=== PATIENT | male | born 1970 | race Caucasian/White ===

== ENCOUNTER 2024-08-04 07:00 | Day surgery (SDC) | payer BC, OTHER ==
[2024-07-29 10:24] LABS: BASOPHILS % (AUTO) 0.3 % (0-1); EOSINOPHILS # (AUTO) 0.1 X10'3 (0-0.9); EOSINOPHILS % (AUTO) 1.7 % (0-6); LYMPHOCYTES # (AUTO) 1.9 X10'3 (1.1-4.8); LYMPHOCYTES % (AUTO) 33.4 % (21-51); MEAN CORPUSCULAR HEMOGLOBIN 31.1 PG (27.0-31.0); MEAN CORPUSCULAR HGB CONC 34.1 g/dL (33.0-36.5); MEAN CORPUSCULAR VOLUME 91.3 FL (78-98); MEAN PLATELET VOLUME 8.2 FL (7.4-10.4); MONOCYTES # (AUTO) 0.6 X10'3 (0-0.9); MONOCYTES % (AUTO) 10.7 % (2-12); NEUTROPHILS # (AUTO) 3.1 X10'3 (1.8-7.7); NEUTROPHILS % (AUTO) 53.9 % (42-75); PRE OP HEMATOCRIT 49.1 % (42.0-52.0); PRE OP HEMOGLOBIN 16.7 g/dL (14.0-17.9); PRE OP PLATELET COUNT 248 X10'3 (140-440); PRE OP WHITE BLOOD COUNT 5.8 10'3 (4.8-10.8); RED BLOOD COUNT 5.38 X10'6 (4.70-6.10)
[2024-07-29 10:41] LABS: ALBUMIN 4.3 G/DL (3.4-5.0); ALBUMIN/GLOBULIN RATIO 1.1 (1.1-1.5); ALKALINE PHOSPHATASE 108 IU/L (46-116); CHLORIDE 104 MMOL/L (99-107); CREATININE 1.03 MG/DL (0.60-1.10); PRE OP ALT 40 U/L (30-65); PRE OP ANION GAP 4 (8-16); PRE OP AST 25 U/L (10-37); PRE OP BILIRUB, TOTAL 0.9 MG/DL (0.0-1.0); PRE OP POTASSIUM 4.7 MMOL/L (3.4-5.1); PRE OP SODIUM 141 MMOL/L (135-145); TOTAL CARBON DIOXIDE 33.1 MMOL/L (24-32); TOTAL PROTEIN 8.1 G/DL (6.4-8.2); eGFR 76 ML/MIN
[2024-07-29 10:49] LABS: BLOOD UREA NITROGEN 14 MG/DL (7-18); BUN/CREATININE RATIO 13.6 (10.0-20.0); PRE OP GLUCOSE 90 MG/DL (70-104)
[~2024-08-04] VITALS: Ht 177.8 cm; Wt 93.0 kg
[2024-08-04] VITALS (12 sets, daily range): BP systolic 130–145; BP diastolic 79–91; PULSE 71–102; RESP 10–19; TEMP 97.5; O2SAT 92–99
[2024-08-04] MEDS: ceFAZolin 2gm in dextrose, iso 50 ML IV ONE (05:30)
[~2024-08-04 07:00] MED LIST: CHOL10006 PO; LOVA20TA2 PO
[2024-08-04] MEDS ORDERED: LIDOcaine 1% 30ml preserv. free vial ONE (07:17)
[2024-08-04] MEDS ORDERED: BUPIVAcaine 2.5mg/ml inj 50ml vial (contains preservative) ONE (07:17)
[2024-08-04] MEDS ORDERED: morphine 2 MG/ML inj. syringe IV PRN (07:25)
[2024-08-04] MEDS ORDERED: morphine 4 MG/ML inj SYRINge IV PRN (07:25)
[2024-08-04] MEDS ORDERED: hydrALAZINE 20mg/ml inj. IV PRN (07:25)
[2024-08-04] MEDS ORDERED: proCHLORperazine 10 MG/2 ml inj IV PRN (07:25)
[2024-08-04] MEDS ORDERED: ringers solution, lacted 1,000 ML IV SCH (07:25)
[2024-08-04] MEDS ORDERED: ondansetron/PF 4mg/2ml inj IV PRN (07:25)
[2024-08-04] MEDS ORDERED: labetalol 20mg/4ml (5mg/ml) syringe IV PRN (07:25)
[2024-08-04] MEDS ORDERED: meperidine/PF 25mg/ml syringe IV PRN ×3 (07:25)
[2024-08-04] MEDS: famotidine 20mg tablet PO ONE (07:28)
[2024-08-04] MEDS: ringers solution, lacted 1,000 ML IV SCH (07:29)
[2024-08-04] MEDS ORDERED: sevoflurane 250ml liquid IH ONE (08:33)
[2024-08-04] MEDS ORDERED: fentaNYL /PF 50mcg/ml 5ml ampule ONE (08:36)
[2024-08-04] MEDS ORDERED: midazolam 1 mg/ML 2ml injection ONE (08:36)
[2024-08-04] MEDS ORDERED: dexamethasone sod phosphate 4mg/ml inj. ONE (08:43)
[2024-08-04] MEDS ORDERED: LIDOcaine 2% (20mg/ml) 5ml vial ONE (08:43)
[2024-08-04] MEDS ORDERED: ondansetron/PF 4mg/2ml inj ONE (08:43)
[2024-08-04] MEDS ORDERED: propofol inj 20 ML IV ONE (08:43)
[2024-08-04] MEDS ORDERED: rocuronium 10mg/ml inj IV ONE (08:43)
[2024-08-04] MEDS: BUPIVAcaine 2.5mg/ml inj 50ml vial (contains preservative) IJ ONE (09:10)
[2024-08-04] MEDS ORDERED: ePHEDrine 50MG/ML INJ. ONE (09:48)
[2024-08-04] MEDS ORDERED: 0.9 % SODIUM CHLORIDE 10 ML VIAL ONE (09:48)
[2024-08-04] MEDS ORDERED: neostigmine methylsulfate 1 MG/ML 10ml vial ONE (09:49)
[2024-08-04] MEDS ORDERED: glycopyrrolate 0.2mg/ml inj ONE (09:49)
[2024-08-04] MEDS ORDERED: ibuprofen 200mg tablet PO PRN (10:10)
[2024-08-04] MEDS: acetaminophen 1,000mg/100ml IV 100 ML IV ONE (10:50)
== END 2024-08-04 13:46 | disposition home or self-care (01) ==
LOC: PAS 07:00
PROVIDERS: ATTEND Surgery
DX: K40.20 Bilateral inguinal hernia, without obstruction or gangrene, not specified as recurrent (principal); K42.9 Umbilical hernia without obstruction or gangrene; E78.5 Hyperlipidemia, unspecified; G47.33 Obstructive sleep apnea (adult) (pediatric); Z79.899 Other long term (current) drug therapy; Z98.890 Other specified postprocedural states; Z82.61 Family history of arthritis
CPT/HCPCS: 36415; 49591; 49650; 80053; 82948; 85025; 93005; C1781; J0131; J0690; J1100; J2003; J2250; J2405; J2704; J2710; J3010; J3490; J7030; J7120; S2900; Z7506; Z7508; Z7512; A4215; A4314; A4618